=== PATIENT | male | born 1985 | race Caucasian/White ===

== ENCOUNTER 2017-07-08 15:43 | Emergency (ER) | payer SELFPAY ==
[~2017-07-08] VITALS: Ht 91.4 cm; Wt 73.9 kg
[2017-07-08 15:49] VITALS: BP 110/70
== END 2017-07-08 15:54 | disposition left against medical advice (07) ==
LOC: ER 15:50
DX: H57.8 Other specified disorders of eye and adnexa (principal); Z53.21 Procedure and treatment not carried out due to patient leaving prior to being seen by health care provider

== ENCOUNTER 2017-07-09 08:33 | Emergency (ER) | payer SELFPAY ==
[~2017-07-09] VITALS: Ht 190.5 cm; Wt 72.6 kg
[2017-07-09 09:05] VITALS: BP 117/75
[2017-07-09] MEDS ORDERED: FLUORESCEIN SOD 1 MG TEST STRIP OP ONE (09:30)
[2017-07-09] MEDS ORDERED: TETRACAINE HCL 0.5% OPTH(EYE) SOLN 4ML EACHEYE ONE (09:30)
== END 2017-07-09 09:39 | disposition home or self-care (01) ==
LOC: ER 08:33
DX: S05.02XA Injury of conjunctiva and corneal abrasion without foreign body, left eye, initial encounter (principal); H10.32 Unspecified acute conjunctivitis, left eye; X58.XXXA Exposure to other specified factors, initial encounter; Y93.89 Activity, other specified; Y99.8 Other external cause status; Y92.89 Other specified places as the place of occurrence of the external cause